=== PATIENT | male | born 1955 | race African-American/Black ===

== ENCOUNTER 2022-03-01 11:57 | Emergency (ER) | payer BC ==
[~2022-03-01] VITALS: Ht 175.3 cm; Wt 136.0 kg
[2022-03-01] MEDS ORDERED: IBUPROFEN 400MG TABLET PO SCH (13:30)
[2022-03-01] MEDS ORDERED: ACETAMINOPHEN 325MG TABLET PO SCH (13:30)
[2022-03-01 14:45] LABS: HEMATOCRIT. 41.5 % (42.0-52.0); HEMOGLOBIN. 13.9 g/dL (14.0-18.0); MEAN CORPUSCULAR HEMOGLOBIN 30.9 pg (28.0-32.0); MEAN CORPUSCULAR VOLUME 92.1 fL (80.0-94.0); MEAN PLATELET VOLUME 8.1 fl (7.4-10.4); PLATELET 249 x1000/uL (130-400); RED BLOOD CELL COUNT 4.51 mill/uL (4.7-6.1); RED CELL DISTRIBUTION WIDTH 15.5 % (11.6-14.6)
[2022-03-01] MEDS ORDERED: AMLODIPINE 5MG TABLET PO ONE (14:45)
[2022-03-01 15:30] VITALS: BP 151/85
[2022-03-01 16:04] LABS: CHLORIDE 105 mEq/L (98-107)
[2022-03-01 16:26] LABS: PLATELET ESTIMATE NORMAL
== END 2022-03-01 17:59 | disposition home or self-care (01) ==
LOC: ER 11:57
DX: R07.89 Other chest pain (principal); R42 Dizziness and giddiness; V58.4XXA Person boarding or alighting a pick-up truck or van injured in noncollision transport accident, initial encounter; Y93.89 Activity, other specified; Y92.89 Other specified places as the place of occurrence of the external cause; Y99.8 Other external cause status
CPT/HCPCS: 36415; 71045; 80053; 82962; 83735; 84484; 85025; 93005; 99285